=== PATIENT | male | born 1960 | race Caucasian/White ===

== ENCOUNTER → 2023-09-08 13:10 | Outpatient (REF) | payer OTHER, SELFPAY ==
--- NOTE | 2023-09-14 11:02 | OID.L.PAT ---
Pulmonary Nodule Pat Letter
- -
09/14/23
CHAN [facility]
[address]
[place] [id number]
Dear CHAN,
A pulmonary nodule was seen on an imaging study done by [facility]. This was reviewed by the [facility] Pulmonary Nodule Advisory Board and the following recommendation was made:
Recommendation: Based on current guidelines, no further follow up is necessary at this time
If you have any questions, please do not hesitate to contact your primary care physician. If you are in need of a Physician, you can go to [email or web address] and click on 'Find a Provider'. Type 'Family Medicine' in the search.
Oncology Nurse Navigator
[facility]
[phone]
--- NOTE | 2023-09-14 11:03 | OID.L.REC ---
Pulmonary Nodule Follow Up
- Recommendation
09/14/23
Pulmonary Nodule Review Recommendations
Your patient, CHAN DOWNS, had a pulmonary nodule seen on an imaging study done on 09/08/23 in the [facility] Department.
This was reviewed by the [facility] Pulmonary Nodule Advisory Board and the following recommendation was made:
Recommendation: Based on current guidelines, no further follow up is necessary at this time
If you have any questions please do not hesitate to contact us.
Sincerely,
Oncology Nurse Navigator
[facility]
[phone]
== END ==
LOC: RAD 13:10
PROVIDERS: ATTENDING PHYSICIAN Internal Medicine
DX: Z00.00 Encounter for general adult medical examination without abnormal findings (principal); M75.02 Adhesive capsulitis of left shoulder
CPT/HCPCS: 75571

== ENCOUNTER → 2023-09-08 13:21 | Outpatient (REF) | payer OTHER, SELFPAY | LOC: RAD 13:21 | PROVIDERS: ATTENDING PHYSICIAN Internal Medicine | DX: M75.02 Adhesive capsulitis of left shoulder (principal) | CPT/HCPCS: 73030 ==